=== PATIENT | male | born 1950 | race Caucasian/White ===

== ENCOUNTER → 2023-01-29 | Outpatient (CLI) | payer MEDICARE ==
[2023-01-29 21:58] LABS: HCT 52.6 % (39.6-50.0); HGB 17.8 g/dL (13.0-17.0); MCH 30.5 pg (27.0-32.0); MCHC 33.8 g/dL (32.0-37.0); MCV 90.2 fL (80.0-97.0); Mean Platelet Volume 10.4 fL (9.5-12.2); NRBC Per 100 WBC 0 /100 WBCS (0.0-0.0); Platelet Count 252 X 10*3/uL (140-440); RBC 5.83 X 10*6/uL (4.40-5.60); WBC 9.68 X 10*3/uL (4.50-10.00)
[2023-01-30 00:21] LABS: Anion Gap 14.4 mmol/L (10.00-18.00); Blood Urea Nitrogen 10.3 mg/dL (9.0-27.0); Carbon Dioxide 26.8 mmol/L (20.0-27.5); Non-African American GFR(CKD) 78.6 (60.0-200.0); Potassium 3.9 mmol/L (3.5-5.5)
== END | disposition home or self-care (01) ==
LOC: LABPAT 14:41
PROVIDERS: ATTEND Internal Medicine Cardiovascular Disease
DX: Z01.812 Encounter for preprocedural laboratory examination (principal); R06.02 Shortness of breath
CPT/HCPCS: 80051; 82565; 84520; 85027

== ENCOUNTER → 2023-03-11 | Outpatient (CLI) | payer OTHER ==
[2023-03-11 20:19] LABS: African American GFR (CKD) 97.1 (60.0-200.0); Anion Gap 12.8 mmol/L (10.00-18.00); Blood Urea Nitrogen 8.9 mg/dL (9.0-27.0); Carbon Dioxide 25.4 mmol/L (20.0-27.5); Non-African American GFR(CKD) 83.8 (60.0-200.0); Potassium 4.1 mmol/L (3.5-5.5)
[2023-03-11 20:26] LABS: HCT 43.7 % (39.6-50.0); HGB 14.9 g/dL (13.0-17.0); MCH 30.1 pg (27.0-32.0); MCHC 34.1 g/dL (32.0-37.0); MCV 88.3 fL (80.0-97.0); Mean Platelet Volume 10.6 fL (9.5-12.2); NRBC Per 100 WBC 0 /100 WBCS (0.0-0.0); Platelet Count 219 X 10*3/uL (140-440); RBC 4.95 X 10*6/uL (4.40-5.60); RDW 13.9 % (11.5-14.5); WBC 6.17 X 10*3/uL (4.50-10.00)
== END | disposition home or self-care (01) ==
LOC: LABPAT 14:14
PROVIDERS: ATTEND Internal Medicine Cardiovascular Disease
DX: Z01.812 Encounter for preprocedural laboratory examination (principal); I25.10 Atherosclerotic heart disease of native coronary artery without angina pectoris
CPT/HCPCS: 36415; 80051; 82565; 84520; 85027

== ENCOUNTER 2023-03-19 06:16 | Day surgery (SDC) | payer MEDICARE ==
[2023-03-13 18:07] VITALS: BMI 25.8
[~2023-03-19 06:16] MED LIST: ALPRAZolam 0.25 MG TAB PO PRN; ALPRAZolam 0.5 MG TAB PO PRN; ASPIRIN 325 MG TAB PO STA; ATORVASTATIN 80 MG TAB PO STA; HEPARIN SODIUM,PORCINE 10,000 UNIT in SODIUM CHLORIDE 0.9% 1,000 ML IRRIGATION PRN; HEPARIN SODIUM,PORCINE 2,500 UNIT in SODIUM CHLORIDE 0.9% 250 ML IRRIGATION PRN; NITROGLYCERIN SL TABS 0.4 MG TAB SUBLINGUAL PRN; SODIUM CHLORIDE 0.9% 1,000 ML in EMPTY BAG 1 BAG IV SCH
[2023-03-19 06:42] VITALS: RESP 16; TEMP 98
[2023-03-19] MEDS ORDERED: SODIUM CHLORIDE 0.9% 1,000 ML IV ONE (06:42)
[2023-03-19] MEDS ORDERED: MIDAZOLAM 2 MG/2 ML VIAL IVP ONE (07:33)
[2023-03-19] MEDS ORDERED: fentaNYL (PF) 50 MCG/ML 2 ML AMP IVP ONE (07:33)
[2023-03-19] MEDS ORDERED: LIDOCAINE 1% INJ 10MG/ML (5 ML VIAL-PF) SQ ONE (07:35)
[2023-03-19] MEDS ORDERED: VERAPAMIL SYRINGE (5 MG/10 ML) INTRAARTER ONE (07:36)
[2023-03-19] MEDS ORDERED: HEPARIN SODIUM 1,000 UN/ML (10ML VL) IVP ONE (07:50)
[2023-03-19] MEDS ORDERED: IOPAMIDOL-370 100ML BTL INJ ONE (08:04)
--- NOTE | 2023-03-19 08:32 | CC ---
CARDIAC CATHETERIZATION REPORT INDICATIONS: Coronary artery disease with an abnormal stress test in a patient with recent cardiac cath in [place], came for second opinion. PROCEDURE NOTE: After obtaining informed consent, left heart catheterization and coronary angiogram were performed via the right radial artery using standard Mariaa catheters. The patient tolerated the procedure well without any obvious immediate complications. The patient received moderate conscious sedation. Total sedation time was 30 minutes. Right radial artery access was obtained using modified Seldinger technique. Catheters and wires were floated into the ascending aorta under fluoroscopic guidance. The patient received verapamil and heparin per protocol and a TR band was used for hemostasis at the end of the procedure. FINDINGS: 1. Hemodynamics: Left ventricular end-diastolic pressure is 24 mm. There is no significant gradient across the aortic valve. 2. Left Ventriculogram: Left ventriculogram is not performed. 3. Angiographic Data: a.Right Coronary Artery: Right coronary artery is a large dominant vessel that shows mild nonobstructive disease in its midportion. b.Left main coronary artery appears calcified but is free of significant stenosis, divides into left anterior descending coronary artery and circumflex coronary artery. LAD shows 30% to 40% stenosis in the proximal portion. Circumflex coronary artery is a codominant system that is chronically occluded as it becomes the AV groove circ. 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 PLAN: I reviewed angiographic data with the patient and told him that his management is going to be in the form of medical therapy with aspirin, statin, nitrates, and beta blockers. If the patient has symptoms, I will consider a stress test and if he has significant ischemia in circ distribution, consider BROKE HANDLER angioplasty. MMODL / IJN: [id number] /
[2023-03-19 12:26] VITALS: BP 144/72; PULSE 57
== END 2023-03-19 12:39 | disposition home or self-care (01) ==
LOC: CATHCVL 06:16
PROVIDERS: ATTEND Internal Medicine Cardiovascular Disease
DX: I25.10 Atherosclerotic heart disease of native coronary artery without angina pectoris (principal); I10 Essential (primary) hypertension; E78.5 Hyperlipidemia, unspecified; Z79.82 Long term (current) use of aspirin; Z88.0 Allergy status to penicillin; Z82.49 Family history of ischemic heart disease and other diseases of the circulatory system; Z79.899 Other long term (current) drug therapy
CPT/HCPCS: 93458; C1769 ×2; C1894; J2250; J2001; J3010; J1644; Q9967